=== PATIENT | male | born 2000 | race Caucasian/White ===

== ENCOUNTER 2021-12-31 11:56 | Emergency (ER) | payer OTHER ==
[2021-12-31] MEDS ORDERED: Diphtheria,Pertussis(Acell),Tetanus Vaccine 0.5 ML Syringe IM ONE (12:00)
[2021-12-31] MEDS ORDERED: fentaNYL 50 MCG/ML SDV IVPUSH ONE ×2 (12:00→13:23)
[2021-12-31] MEDS ORDERED: Sodium Chloride 0.9% 1,000 ML IV SCH (12:45)
[2021-12-31] MEDS ORDERED: Ketamine 500 mg/10 ML MDV IV STA (13:11)
[2021-12-31 13:17] LABS: CARBON DIOXIDE,CO2 25.6 mmol/L (21.0-32.0); POTASSIUM,K 3.7 mmol/L (3.5-5.1)
[2021-12-31] MEDS ORDERED: Ondansetron 4 MG/2 ML SDV IVPUSH ONE (13:48)
[2021-12-31] MEDS ORDERED: Ketorolac 30 MG/ML SDV IVPUSH STA (15:33)
== END 2021-12-31 16:06 | disposition home or self-care (01) ==
LOC: MW.ED 11:56
DX: S73.004A Unspecified dislocation of right hip, initial encounter (principal); Z23 Encounter for immunization; V86.56XA Driver of dirt bike or motor/cross bike injured in nontraffic accident, initial encounter
CPT/HCPCS: 27250; 36415; 71045; 73502; 80053; 82550; 83735; 85025; 85610; 90471; 90715; 93005; 96374; 96375; 96376; 99284; J1885; J2405; J3010; J3490; J7030; 93010